=== PATIENT | male | born 1940 | race Two or more races ===

== ENCOUNTER 2018-10-09 00:45 | Emergency (ER) | payer OTHER ==
[~2018-10-09] VITALS: Ht 170.2 cm; Wt 88.5 kg
[2018-10-09 00:45] VITALS: BP_SYST 157
--- NOTE | 2018-10-09 01:34 | NUR ---
ER at bedside examining patient.
--- NOTE | 2018-10-09 01:34 | NUR ---
Patient to ER bed 8 to gown for evaluation. Side rails up. Report given to ALAN KIRBY.
--- NOTE | 2018-10-09 01:37 | NUR ---
Pt C/O nose pain S/P mechanical fall. Pt was walking in a parking lot and missed the curb, -KO. Pt has an abrasion to the bridge of the nose, bleeding is controlled no deformities noted. Vital signs are stable, will continue to monitor.
--- NOTE | 2018-10-09 01:46 | NUR ---
Patient transported to radiology via wheelchair, accompanied by rad staff.
--- NOTE | 2018-10-09 02:05 | NUR ---
Pt has returned from CT in stable condition. Pt's daughter is at bedside.
--- NOTE | 2018-10-09 03:22 | NUR ---
Patient given written and verbal discharge instructions and verbalizes understanding. ER MD discussed with patient the results and treatment provided. Patient in stable condition. ID arm band removed. Rx of Naprosyn given. Patient educated on pain management and to follow up with PMD. Pain Scale 0/10. Opportunity for questions provided and answered. Medication side effect fact sheet provided.
[2018-10-09 03:23] VITALS: BP_SYST 157
== END 2018-10-09 03:23 | disposition home or self-care (01) ==
LOC: SED 00:45
DX: S00.33XA Contusion of nose, initial encounter (principal); E11.9 Type 2 diabetes mellitus without complications; R03.0 Elevated blood-pressure reading, without diagnosis of hypertension; W01.0XXA Fall on same level from slipping, tripping and stumbling without subsequent striking against object, initial encounter; Y93.89 Activity, other specified; Y92.89 Other specified places as the place of occurrence of the external cause; Y99.8 Other external cause status
CPT/HCPCS: 70450-TC; 70486-TC; 99284

== ENCOUNTER 2022-03-03 09:31 | Inpatient (IN) | payer OTHER ==
[~2022-03-03] VITALS: Ht 167.6 cm; Wt 72.1 kg
[~2022-03-03 09:31] MED LIST: ALBMDI INH; AUG875 PO; CYAN100T44 PO; GLIP10TA11 PO; IBUP-1969 PO; LISI10TA29 PO; NIRM1TAB PO
[2022-03-03 09:39] VITALS: BP_SYST 127
--- NOTE | 2022-03-03 09:40 | NUR ---
Patient to ER bed 04 to gown for evaluation. Side rails up.
--- NOTE | 2022-03-03 09:45 | NUR ---
Patient A/Ox4, VSS, resp even and unlabored. Patient presents to ED with c/o diarrhea and vomiting x1 day. NAD noted at this time. Will continue to monitor.
--- NOTE | 2022-03-03 09:53 | NUR ---
ERMD AT BEDSIDE AT THIS TIME
[2022-03-03] MEDS ORDERED: NACL 0.9% 1,000 ML IV ONE ×2 (10:00→10:30)
[2022-03-03] MEDS ORDERED: ONDANSETRON HCL 4 MG/2 ML VIAL IVP ONE ×2 (10:00)
[2022-03-03] MEDS ORDERED: ACETAMINOPHEN 325 MG TABLET PO ONE (10:15)
[2022-03-03 10:24] LABS: BASOPHILS # (AUTO) 0.1 K/uL (0.0-0.2); BASOPHILS % (AUTO) 0.5 % (0.0-2.0); HEMATOCRIT 39.6 % (36-54); HEMOGLOBIN 13.5 g/dL (14.0-18.0); LYMPHOCYTES # (AUTO) 1.2 K/uL (1.0-5.5); LYMPHOCYTES % (AUTO) 5.8 % (20.5-51.5); MEAN CORPUSCULAR HEMOGLOBIN 31 pg (27-31); MEAN CORPUSCULAR HGB CONC 34 % (32-36); MEAN CORPUSCULAR VOLUME 90 fL (79.0-98.0); MONOCYTES # (AUTO) 1.3 K/uL (0.0-1.0); MONOCYTES % (AUTO) 6.7 % (1.7-9.3); NEUTROPHILS # (AUTO) 17.3 K/uL (1.8-7.7); PLATELET COUNT (AUTO) 281 K/uL (130-430); RED BLOOD CELL COUNT(AUTO) 4.39 MIL/uL (4.2-6.2); RED CELL DISTRIBUTION WIDTH 13.6 % (9.0-15.0); WHITE BLOOD COUNT (AUTO) 19.9 K/uL (4.8-10.8)
[2022-03-03 10:32] LABS: ANION GAP 11 (5-15); CALCIUM 9.1 mg/dL (8.4-11.0); CHLORIDE 100 mmol/L (98-107); CREATININE 1.24 mg/dL (0.55-1.30); GLUCOSE 216 mg/dL (70-99); POTASSIUM 4.4 mmol/L (3.5-5.1); SODIUM SERUM 135 mmol/L (136-145); UREA NITROGEN, BLOOD 27 mg/dL (8-21)
[2022-03-03 10:37] LABS: ALANINE AMINOTRANSFERASE 21 U/L (12-78); ALBUMIN 3.3 g/dL (3.4-4.8); ASPARTATE AMINOTRANSFERASE 21 U/L (10-37); LIPASE 125 U/L (73-393); TOTAL BILIRUBIN 0.9 mg/dL (0.0-1.0)
--- NOTE | 2022-03-03 12:00 | NUR ---
pt ambulated to restroom with walker at this time
[2022-03-03] MEDS ORDERED: CEFEPIME 2 GM in D5W 100 ML IV ONE (12:30)
[2022-03-03] MEDS ORDERED: metroNIDAZOLE 500 mg/NS 100 ML IV ONE (12:30)
--- NOTE | 2022-03-03 14:34 | NUR ---
family at bedside at this time
--- NOTE | 2022-03-03 15:44 | NUR ---
COVID SWAB OBTAINED AND SENT TO LAB
[2022-03-03] MEDS: D5/0.45 NS 1,000 ML IV SCH ×2 (15:45→23:58)
[2022-03-03 16:27] LABS: BILIRUBIN,URINE NEGATIVE (NEGATIVE); BLOOD, URINE NEGATIVE (NEGATIVE); CLARITY/URINE CLEAR (CLEAR); COLOR,URINE YELLOW (YELLOW); GLUCOSE,URINE 3+ (NEGATIVE); KETONES,URINE 1+ (NEGATIVE); LEUKOCYTE ESTERASE ,URINE NEGATIVE (NEGATIVE); NITRITE, URINE NEGATIVE (NEGATIVE); PROTEIN URINE NEGATIVE (NEGATIVE); UROBILINOGEN,URINE 0.2 (0.2-1.0)
--- NOTE | 2022-03-03 17:00 | NUR ---
Patient resting comfortably with side rails raised. Nad noted at this time. Will continue to monitor.
--- NOTE | 2022-03-03 18:16 | NUR ---
Patient given dinner tray at bedside. Patient's son at bedside. Nad noted at this time.
[2022-03-03 18:43] LABS: BACTERIA,URINE RARE /HPF (None Seen); MUCUS,URINE None Seen /LPF (None Seen); RBC,URINE NONE SEEN /HPF (0-3); WBC,URINE 0-3 /HPF (0-3)
--- NOTE | 2022-03-03 19:15 | NUR ---
Yamilka pearson in [facility] - 03/03/22 at 1916 by [id number] pt refused labs. MD archer
[2022-03-03 20:20] VITALS: BP_SYST 93
--- NOTE | 2022-03-03 21:05 | NUR ---
CONSULTATION PAGED/CALLED Reason for Consultation: COLITIS Person Who was Notified: ASHLEY Consulting Physician: DR. ORTEGA Dry House Worker Specialty: GI Ordering Physician: MICHAEL ANDRE
--- NOTE | 2022-03-03 21:05 | NUR ---
CONSULTATION PAGED/CALLED Reason for Consultation: COLITIS Person Who was Notified: ASHLEY Consulting Physician: Neeta DHALIWAL Welding Process Specialist Specialty: ID Ordering Physician:
[2022-03-03] MEDS ORDERED: ACETAMINOPHEN 325 MG TABLET PO PRN (21:30)
[2022-03-03] MEDS ORDERED: ONDANSETRON HCL 4 MG/2 ML VIAL IVP PRN (21:30)
[2022-03-03] MEDS ORDERED: NALOXONE HCL 0.4 MG/ML AMP (NARCAN) IVP PRN ×2 (21:30)
[2022-03-03] MEDS ORDERED: ALBUTEROL MDI INHALATION 8 GM INH INH PRN (21:30)
[2022-03-03] MEDS ORDERED: HYDROcodone/ACETAMIN 5-325 MG TAB (NORCO/ VICODIN) PO PRN (21:30)
[2022-03-03] MEDS ORDERED: INSULIN REGULAR, HUMAN 100 UNITS/ML, 10 ML VIAL (humuLIN R) SUBCUT PRN (21:30)
[2022-03-03] MEDS ORDERED: IBUPROFEN 600 MG TABLET PO PRN (21:30)
[2022-03-03] MEDS ORDERED: HYDROcodone/ACETAMIN 10-325 MG TAB PO PRN (21:30)
[2022-03-03] MEDS ORDERED: LORazepam 2 MG/ML VIAL IVP PRN (21:30)
[2022-03-03] MEDS ORDERED: metroNIDAZOLE 500 mg/NS 200 ML IV ONE (23:40)
[2022-03-03] MEDS: metroNIDAZOLE 500 mg/NS 100 ML IV SCH (23:58)
[2022-03-04] VITALS: BP_SYST 118
[2022-03-04] MEDS: metroNIDAZOLE 500 mg/NS 100 ML IV SCH (05:36)
[2022-03-04 06:27] LABS: BASOPHILS # (AUTO) 0.1 K/uL (0.0-0.2); BASOPHILS % (AUTO) 0.6 % (0.0-2.0); EOSINOPHILS % (AUTO) 0.2 % (0.0-4.0); HEMATOCRIT 34.4 % (36-54); HEMOGLOBIN 11.8 g/dL (14.0-18.0); LYMPHOCYTES # (AUTO) 1.4 K/uL (1.0-5.5); LYMPHOCYTES % (AUTO) 9.9 % (20.5-51.5); MEAN CORPUSCULAR HEMOGLOBIN 31 pg (27-31); MEAN CORPUSCULAR HGB CONC 34 % (32-36); MEAN CORPUSCULAR VOLUME 90 fL (79.0-98.0); MONOCYTES # (AUTO) 1.2 K/uL (0.0-1.0); MONOCYTES % (AUTO) 8.4 % (1.7-9.3); NEUTROPHILS # (AUTO) 11.1 K/uL (1.8-7.7); NEUTROPHILS % (AUTO) 80.9 % (40.0-70.0); PLATELET COUNT (AUTO) 237 K/uL (130-430); RED BLOOD CELL COUNT(AUTO) 3.81 MIL/uL (4.2-6.2); RED CELL DISTRIBUTION WIDTH 13.6 % (9.0-15.0); WHITE BLOOD COUNT (AUTO) 13.7 K/uL (4.8-10.8)
[2022-03-04] MEDS ORDERED: ACETAMINOPHEN 325 MG TABLET PO PRN (07:15)
[2022-03-04] MEDS ORDERED: ALBUTEROL SULFATE 0.083% 2.5 MG/3 ML VIAL.NEB INH PRN (07:45)
[2022-03-04 07:54] LABS: ERYTHROCYTE SEDIMENTATION RATE 37 MM/HR (0-15)
[2022-03-04 08:00] VITALS: BP_SYST 121
[2022-03-04 08:41] LABS: ALANINE AMINOTRANSFERASE 13 U/L (12-78); ALBUMIN 2.5 g/dL (3.4-4.8); ANION GAP 7 (5-15); ASPARTATE AMINOTRANSFERASE 21 U/L (10-37); C-REACTIVE PROTEIN QUANT 15.7 mg/dL (0-0.5); CALCIUM 7.8 mg/dL (8.4-11.0); CHLORIDE 103 mmol/L (98-107); CREATININE 0.81 mg/dL (0.55-1.30); GLUCOSE 190 mg/dL (70-99); PHOSPHORUS 2.4 mg/dL (2.7-4.5); POTASSIUM 3.5 mmol/L (3.5-5.1); SODIUM SERUM 132 mmol/L (136-145); TOTAL BILIRUBIN 0.6 mg/dL (0.0-1.0); UREA NITROGEN, BLOOD 20 mg/dL (8-21)
[2022-03-04] MEDS ORDERED: CIPROFLOXACIN LACT 200 MG/D5W 100 ML IV SCH (09:00)
[2022-03-04] MEDS ORDERED: NIRMATRELVIR PO SCH (09:00)
[2022-03-04] MEDS ORDERED: LISINOPRIL 10 MG TABLET (PRINIVIL) PO SCH (09:00)
[2022-03-04] MEDS ORDERED: LACTOBACILLUS RHAMNOSUS GG 1 CAP CAPSULE PO SCH (09:00)
[2022-03-04] MEDS ORDERED: NON-FORMULARY MEDICATION (Cyanocobalamin (Vitamin B-12) 100 MCG) PO SCH (09:00)
[2022-03-04] MEDS ORDERED: RITONAVIR PO SCH (09:00)
[2022-03-04] MEDS ORDERED: AMOXICILLIN/CLAVULANATE POTASSIUM 875 MG TABLET PO SCH (09:00)
[2022-03-04] MEDS ORDERED: [UNRECOGNIZED DRUG - CODE] PO (09:10)
[2022-03-04] MEDS ORDERED: CIPR250T4 PO (09:10)
[2022-03-04] MEDS ORDERED: METR-343 PO (09:10)
[2022-03-04] MEDS ORDERED: NAPH,MB-DB/K PH,MBDB 250 MG TAB PO ONE (09:15)
--- NOTE | 2022-03-04 09:15 | NUR ---
seen and examined by with orders.patient told him he wants to go home today MD said not yet but patient is insisting that he wants to go. MD said patient can sign AMA if he really wanted to go and he is not clearing him for discharge.
[2022-03-04 11:25] VITALS: BP_SYST 126
--- NOTE | 2022-03-04 11:29 | NUR ---
spoke to patient"s daughter caryn tel.# [phone] tlld her that her father wants to go AMA she said if that what he wants she will bulk picker father around 1200 today. Patient signed the AMA form and explain the risk of going against medical advise patient understands and still wants to go AMA.
== END 2022-03-04 12:20 | disposition home or self-care (01) | DRG 872 ==
LOC: SED 09:31 → MERGE 15:32 → SMU 15:32
PROVIDERS: ADMIT Preventive Medicine Preventive Medicine/Occupational Environmental Medicine; ATTEND Preventive Medicine Preventive Medicine/Occupational Environmental Medicine
DX: A41.9 Sepsis, unspecified organism (principal); K57.92 Diverticulitis of intestine, part unspecified, without perforation or abscess without bleeding; A04.72 Enterocolitis due to Clostridium difficile, not specified as recurrent; E44.0 Moderate protein-calorie malnutrition; R64 Cachexia; E11.9 Type 2 diabetes mellitus without complications; E78.5 Hyperlipidemia, unspecified; I10 Essential (primary) hypertension; I25.10 Atherosclerotic heart disease of native coronary artery without angina pectoris; E11.65 Type 2 diabetes mellitus with hyperglycemia; Z79.899 Other long term (current) drug therapy; Z90.49 Acquired absence of other specified parts of digestive tract
CPT/HCPCS: 36415; 76376; 80053; 81000; 82272; 82962; 83690; 83735; 84100; 85025; 85651-TC; 86140; 87045-TC; 87046; 87177; 87230-TC; 89055; 96361; 96365; 96375; 99285; J0692; J0744; J3490; J7030; J7060

== ENCOUNTER 2023-08-12 10:42 | Emergency (ER) | payer OTHER ==
[~2023-08-12] VITALS: Ht 167.6 cm; Wt 68.0 kg
[~2023-08-12 10:42] MED LIST changes: -AUG875 PO; +CIPR250T4 PO; +METR-343 PO; -NIRM1TAB PO; +[UNRECOGNIZED DRUG - CODE] PO
[2023-08-12 10:49] VITALS: BP_SYST 157; PULSE 107; RESP 18; TEMP 97.8; O2SAT 97
[2023-08-12] MEDS: NS 1000 ML IV.SOLN IV ONE (11:26)
[2023-08-12 11:35] LABS: BASOPHILS # (AUTO) 0.1 K/uL (0.0-0.2); BASOPHILS % (AUTO) 0.8 % (0.0-2.0); EOSINOPHILS # (AUTO) 0.2 K/uL (0.0-0.4); EOSINOPHILS % (AUTO) 2.2 % (0.0-4.0); HEMATOCRIT 35.6 % (36-54); HEMOGLOBIN 12.2 g/dL (14.0-18.0); LYMPHOCYTES # (AUTO) 0.7 K/uL (1.0-5.5); LYMPHOCYTES % (AUTO) 8.8 % (20.5-51.5); MEAN CORPUSCULAR HEMOGLOBIN 31 pg (27-31); MEAN CORPUSCULAR HGB CONC 34 % (32-36); MEAN CORPUSCULAR VOLUME 91 fL (79.0-98.0); MONOCYTES # (AUTO) 0.9 K/uL (0.0-1.0); MONOCYTES % (AUTO) 11.8 % (1.7-9.3); NEUTROPHILS # (AUTO) 5.7 K/uL (1.8-7.7); NEUTROPHILS % (AUTO) 76.4 % (40.0-70.0); PLATELET COUNT (AUTO) 341 K/uL (130-430); RED CELL DISTRIBUTION WIDTH 14.4 % (9.0-15.0); WHITE BLOOD COUNT (AUTO) 7.5 K/uL (4.8-10.8)
[2023-08-12 11:48] LABS: ANION GAP 7 (5-15); CALCIUM 9.3 mg/dL (8.4-11.0); CARBON DIOXIDE 26 mmol/L (23-29); CHLORIDE 102 mmol/L (98-107); CREATININE 1.13 mg/dL (0.55-1.30); GLUCOSE 132 mg/dL (74-106); POTASSIUM 4.3 mmol/L (3.5-5.1); SODIUM SERUM 135 mmol/L (136-145); UREA NITROGEN, BLOOD 41 mg/dL (8-21)
[2023-08-12 11:59] LABS: ALANINE AMINOTRANSFERASE 26 U/L (12-78); ALBUMIN 3.3 g/dL (3.4-4.8); ASPARTATE AMINOTRANSFERASE 29 U/L (10-37); BILIRUBIN,DIRECT 0.2 mg/dL (0.0-0.3); TOTAL BILIRUBIN 0.4 mg/dL (0.0-1.0); TOTAL PROTEIN, SERUM 7.2 g/dL (6.4-8.3)
[2023-08-12 14:11] LABS: BILIRUBIN,URINE NEGATIVE (NEGATIVE); BLOOD, URINE NEGATIVE (NEGATIVE); CLARITY/URINE CLEAR (CLEAR); COLOR,URINE YELLOW (YELLOW); GLUCOSE,URINE TRACE (NEGATIVE); KETONES,URINE TRACE (NEGATIVE); LEUKOCYTE ESTERASE ,URINE NEGATIVE (NEGATIVE); NITRITE, URINE NEGATIVE (NEGATIVE); PROTEIN URINE NEGATIVE (NEGATIVE)
[2023-08-12] MEDS ORDERED: PHEDM120 PO (14:51)
[2023-08-12 14:56] VITALS: BP_SYST 145; PULSE 98; RESP 17; TEMP 99; O2SAT 98
== END 2023-08-12 14:56 | disposition home or self-care (01) ==
LOC: SED 10:42
DX: R53.1 Weakness (principal); E86.0 Dehydration; R07.89 Other chest pain; E11.9 Type 2 diabetes mellitus without complications; I10 Essential (primary) hypertension; Z79.899 Other long term (current) drug therapy
CPT/HCPCS: 99285; 96360; 71045; 96361; 80076; 80048; 81001; 85025; 87040; 87086; 84484; 36415; 93005; 71100; 83605; 81003; J7030

== ENCOUNTER 2024-01-02 13:13 | Emergency (ER) | payer OTHER ==
[~2024-01-02] VITALS: Ht 167.6 cm; Wt 62.6 kg
[~2024-01-02 13:13] MED LIST changes: +PHEDM120 PO
[2024-01-02 13:15] VITALS: BP_SYST 148; PULSE 70; RESP 18; TEMP 97.1; O2SAT 98
[2024-01-02 15:05] LABS: BASOPHILS # (AUTO) 0.1 K/uL (0.0-0.2); BASOPHILS % (AUTO) 0.6 % (0.0-2.0); EOSINOPHILS # (AUTO) 0.7 K/uL (0.0-0.4); EOSINOPHILS % (AUTO) 5.1 % (0.0-4.0); HEMATOCRIT 32.5 % (36-54); MEAN CORPUSCULAR HEMOGLOBIN 32 pg (27-31); MEAN CORPUSCULAR HGB CONC 34 % (32-36); MEAN CORPUSCULAR VOLUME 94 fL (79.0-98.0); MONOCYTES # (AUTO) 1.2 K/uL (0.0-1.0); MONOCYTES % (AUTO) 8.8 % (1.7-9.3); NEUTROPHILS # (AUTO) 9.3 K/uL (1.8-7.7); NEUTROPHILS % (AUTO) 70.5 % (40.0-70.0); PLATELET COUNT (AUTO) 557 K/uL (130-430); RED BLOOD CELL COUNT(AUTO) 3.48 MIL/uL (4.2-6.2); RED CELL DISTRIBUTION WIDTH 14.5 % (9.0-15.0); WHITE BLOOD COUNT (AUTO) 13.3 K/uL (4.8-10.8)
[2024-01-02 15:26] LABS: ALANINE AMINOTRANSFERASE 16 U/L (12-78); ALBUMIN 2.6 g/dL (3.4-4.8); ANION GAP 9 (5-15); ASPARTATE AMINOTRANSFERASE 19 U/L (10-37); BILIRUBIN,DIRECT 0.1 mg/dL (0.0-0.3); CALCIUM 9.3 mg/dL (8.4-11.0); CARBON DIOXIDE 27 mmol/L (23-29); CHLORIDE 107 mmol/L (98-107); CREATINE KINASE, TOTAL 42 U/L (39-308); CREATININE 1.01 mg/dL (0.55-1.30); GLUCOSE 117 mg/dL (74-106); POTASSIUM 4.8 mmol/L (3.5-5.1); SODIUM SERUM 143 mmol/L (136-145); TOTAL BILIRUBIN 0.2 mg/dL (0.0-1.0); TOTAL PROTEIN, SERUM 7.1 g/dL (6.4-8.3); UREA NITROGEN, BLOOD 31 mg/dL (8-21)
[2024-01-02 16:24] VITALS: BP_SYST 148; PULSE 70; RESP 18; TEMP 97.1; O2SAT 98
[2024-01-02 16:27] LABS: INR 1.1 (0.80-1.20); PROTHROMBIN TIME 11.3 SECS (9.5-12.5)
== END 2024-01-02 16:23 | disposition home or self-care (01) ==
LOC: SED 13:13
DX: R20.2 Paresthesia of skin (principal); R29.810 Facial weakness; E11.9 Type 2 diabetes mellitus without complications; I10 Essential (primary) hypertension
CPT/HCPCS: 36415; 70450-TC; 71045; 80048; 80076; 82550; 84484; 85025; 85610; 85730; 93005; 99285

== ENCOUNTER 2024-04-06 08:34 | Emergency (ER) | payer OTHER ==
[~2024-04-06] VITALS: Ht 167.6 cm; Wt 59.0 kg
[2024-04-06 09:11] VITALS: BP_SYST 108; PULSE 100; RESP 16; TEMP 97.2; O2SAT 100
[2024-04-06 09:37] LABS: BASOPHILS % (AUTO) 0.3 % (0.0-2.0); EOSINOPHILS # (AUTO) 0.3 K/uL (0.0-0.4); EOSINOPHILS % (AUTO) 2.4 % (0.0-4.0); HEMOGLOBIN 11.5 g/dL (14.0-18.0); LYMPHOCYTES # (AUTO) 0.5 K/uL (1.0-5.5); LYMPHOCYTES % (AUTO) 3.9 % (20.5-51.5); MEAN CORPUSCULAR HEMOGLOBIN 32 pg (27-31); MEAN CORPUSCULAR HGB CONC 33 % (32-36); MEAN CORPUSCULAR VOLUME 96 fL (79.0-98.0); MONOCYTES # (AUTO) 0.7 K/uL (0.0-1.0); MONOCYTES % (AUTO) 5.6 % (1.7-9.3); NEUTROPHILS # (AUTO) 11.3 K/uL (1.8-7.7); NEUTROPHILS % (AUTO) 87.8 % (40.0-70.0); PLATELET COUNT (AUTO) 373 K/uL (130-430); RED BLOOD CELL COUNT(AUTO) 3.65 MIL/uL (4.2-6.2); RED CELL DISTRIBUTION WIDTH 15.1 % (9.0-15.0); WHITE BLOOD COUNT (AUTO) 12.9 K/uL (4.8-10.8)
[2024-04-06] MEDS: ONDANSETRON HCL 4 MG/2 ML VIAL IVP ONE (09:41)
[2024-04-06 10:00] LABS: INR 1.1 (0.80-1.20)
[2024-04-06 10:23] LABS: ALANINE AMINOTRANSFERASE 21 U/L (12-78); AMYLASE 39 U/L (0-100); ANION GAP 10 (5-15); ASPARTATE AMINOTRANSFERASE 30 U/L (10-37); BILIRUBIN,DIRECT 0.2 mg/dL (0.0-0.3); CALCIUM 8.8 mg/dL (8.4-11.0); CARBON DIOXIDE 22 mmol/L (23-29); CHLORIDE 109 mmol/L (98-107); CREATININE 1.03 mg/dL (0.55-1.30); GLUCOSE 110 mg/dL (74-106); LIPASE 27 U/L (16-77); POTASSIUM 4.5 mmol/L (3.5-5.1); SODIUM SERUM 141 mmol/L (136-145); TOTAL BILIRUBIN 0.5 mg/dL (0.0-1.0); TOTAL PROTEIN, SERUM 6.7 g/dL (6.4-8.3); UREA NITROGEN, BLOOD 52 mg/dL (8-21)
[2024-04-06 10:45] LABS: ACETONE, SERUM NEGATIVE (NEGATIVE)
[2024-04-06 10:58] LABS: BILIRUBIN,URINE NEGATIVE (NEGATIVE); BLOOD, URINE NEGATIVE (NEGATIVE); CLARITY/URINE CLEAR (CLEAR); COLOR,URINE YELLOW (YELLOW); GLUCOSE,URINE NEGATIVE (NEGATIVE); KETONES,URINE TRACE (NEGATIVE); LEUKOCYTE ESTERASE ,URINE NEGATIVE (NEGATIVE); NITRITE, URINE NEGATIVE (NEGATIVE); PROTEIN URINE NEGATIVE (NEGATIVE); UROBILINOGEN,URINE 0.2 (0.2-1.0)
[2024-04-06] MEDS: NACL 0.9% 1,000 ML IV ONE (11:45)
[2024-04-06] MEDS ORDERED: ONDA-8 TL (13:02)
[2024-04-06 13:09] VITALS: BP_SYST 108; PULSE 100; RESP 16; TEMP 97.2; O2SAT 100
== END 2024-04-06 13:08 | disposition home or self-care (01) ==
LOC: SED 08:34
DX: E86.0 Dehydration (principal); R53.1 Weakness; R11.10 Vomiting, unspecified; E11.9 Type 2 diabetes mellitus without complications; I10 Essential (primary) hypertension; Z79.899 Other long term (current) drug therapy; Z79.2 Long term (current) use of antibiotics
CPT/HCPCS: 99285; 96374; 71045; 96361; 80076; 80048; 81001; 82009; 82150; 83690; 85025; 85610; 85730; 84484; 36415; 93005; 83605; 82397; 81003; J2405; J7030

== ENCOUNTER 2024-05-22 09:23 | Inpatient (IN) | payer OTHER ==
[~2024-05-22] VITALS: Ht 167.6 cm; Wt 65.8 kg
[2024-05-22 09:23] VITALS: BP_SYST 117; PULSE 65; RESP 18; TEMP 97.7; O2SAT 97
[~2024-05-22 09:23] MED LIST changes: +ONDA-8 TL
[2024-05-22] MEDS: ONDANSETRON HCL 4 MG/2 ML VIAL IVP ONE (09:45)
[2024-05-22] MEDS: MORPHINE 4 MG INJ. 4 MG/ML VIAL IVP ONE (09:45)
[2024-05-22] MEDS: NITROGLYCERIN 0.4 MG TAB.SUBL SL ONE (09:45)
[2024-05-22] MEDS: ASPIRIN 81 MG TAB.CHEW PO ONE (09:58)
[2024-05-22] MEDS ORDERED: ASPIRIN 81 MG TABLET(ECOTRIN) ONE (10:03)
[2024-05-22] MEDS ORDERED: ASPIRIN 81 MG TAB.CHEW ONE (10:06)
[2024-05-22] MEDS: NACL 0.9% 250 ML IV ONE (10:49)
[2024-05-22 10:55] LABS: BASOPHILS # (AUTO) 0.1 K/uL (0.0-0.2); BASOPHILS % (AUTO) 1.3 % (0.0-2.0); EOSINOPHILS # (AUTO) 0.8 K/uL (0.0-0.4); EOSINOPHILS % (AUTO) 10.9 % (0.0-4.0); HEMATOCRIT 33.5 % (36-54); HEMOGLOBIN 11.3 g/dL (14.0-18.0); LYMPHOCYTES # (AUTO) 1.9 K/uL (1.0-5.5); LYMPHOCYTES % (AUTO) 26.6 % (20.5-51.5); MEAN CORPUSCULAR HEMOGLOBIN 32 pg (27-31); MEAN CORPUSCULAR HGB CONC 34 % (32-36); MEAN CORPUSCULAR VOLUME 95 fL (79.0-98.0); MONOCYTES # (AUTO) 0.9 K/uL (0.0-1.0); MONOCYTES % (AUTO) 11.7 % (1.7-9.3); NEUTROPHILS # (AUTO) 3.6 K/uL (1.8-7.7); NEUTROPHILS % (AUTO) 49.5 % (40.0-70.0); PLATELET COUNT (AUTO) 308 K/uL (130-430); RED BLOOD CELL COUNT(AUTO) 3.54 MIL/uL (4.2-6.2); RED CELL DISTRIBUTION WIDTH 14.3 % (9.0-15.0); WHITE BLOOD COUNT (AUTO) 7.3 K/uL (4.8-10.8)
[2024-05-22 11:29] LABS: ANION GAP 10 (5-15); CALCIUM 9.3 mg/dL (8.4-11.0); CARBON DIOXIDE 23 mmol/L (23-29); CHLORIDE 107 mmol/L (98-107); CREATININE 1.02 mg/dL (0.55-1.30); GLUCOSE 88 mg/dL (74-106); SODIUM SERUM 140 mmol/L (136-145); UREA NITROGEN, BLOOD 42 mg/dL (8-21)
[2024-05-22] MEDS ORDERED: FENO160 PO (12:34)
[2024-05-22] MEDS ORDERED: FERR-69 PO (12:34)
[2024-05-22] MEDS ORDERED: METF-381 PO (12:34)
[2024-05-22] MEDS ORDERED: CLOP75TA32 PO (12:34)
[2024-05-22] MEDS ORDERED: LISI40TA13 PO (12:34)
[2024-05-22] MEDS ORDERED: SITA100T11 PO (12:34)
[2024-05-22] MEDS ORDERED: GABA-531 PO (12:35)
[2024-05-22] MEDS ORDERED: CYCL10TA24 PO (12:35)
[2024-05-22] MEDS ORDERED: INSULIN ASPART 100 UNITS/ML, 10 ML VIAL (NovoLOG) SUBCUT PRN (12:45)
[2024-05-22 13:20] LABS: CHOLESTEROL 139 mg/dL (<200); HDL CHOLESTEROL 37 mg/dL (>45); TRIGLYCERIDES 102 mg/dL (30-150)
[2024-05-22] MEDS ORDERED: DIATR MEGLU/DIATRIZ SOD 30 ML SOLUTION PO ONE (13:23)
[2024-05-22] MEDS: SUCRALFATE 1 GM/10 ML UDC GT ONE (13:55)
[2024-05-22 14:30] VITALS: BP_SYST 142; PULSE 61; RESP 16; TEMP 97.6; O2SAT 100
[2024-05-22] MEDS ORDERED: INSULIN LISPRO SLIDING SCALE 100 UNITS/ML, 3 ML VIAL (humaLOG) SUBCUT PRN (14:30)
[2024-05-22] MEDS: PANTOPRAZOLE SODIUM 40 MG/VIAL (PROTONIX) IVP ONE (15:42)
[2024-05-22 17:05] VITALS: BP_SYST 148; PULSE 59; RESP 16; TEMP 97.6; O2SAT 100
[2024-05-22 17:40] LABS: BILIRUBIN,URINE NEGATIVE (NEGATIVE); BLOOD, URINE NEGATIVE (NEGATIVE); CLARITY/URINE CLEAR (CLEAR); COLOR,URINE YELLOW (YELLOW); GLUCOSE,URINE NEGATIVE (NEGATIVE); KETONES,URINE NEGATIVE (NEGATIVE); LEUKOCYTE ESTERASE ,URINE NEGATIVE (NEGATIVE); NITRITE, URINE NEGATIVE (NEGATIVE); PROTEIN URINE NEGATIVE (NEGATIVE)
[2024-05-22] MEDS: SUCRALFATE 1 GM/10 ML UDC GT SCH (17:45)
[2024-05-22 20:00] VITALS: BP_SYST 118; PULSE 71; RESP 20; O2SAT 98
[2024-05-22 20:30] VITALS: O2SAT 98
[2024-05-22] MEDS: CYCLOBENZAPRINE HCL 10 MG TABLET (FLEXERIL) PO SCH (21:02)
[2024-05-22] MEDS: PANTOPRAZOLE SODIUM 40 MG/VIAL (PROTONIX) IVP SCH (21:03)
[2024-05-22] MEDS: GABAPENTIN 300 MG CAPSULE PO SCH (21:03)
[2024-05-23 00:15] VITALS: BP_SYST 98; PULSE 71; RESP 18; TEMP 97.8; O2SAT 100
[2024-05-23 07:39] LABS: BASOPHILS # (AUTO) 0.1 K/uL (0.0-0.2); BASOPHILS % (AUTO) 1.1 % (0.0-2.0); EOSINOPHILS # (AUTO) 0.6 K/uL (0.0-0.4); EOSINOPHILS % (AUTO) 9.4 % (0.0-4.0); HEMATOCRIT 31.6 % (36-54); HEMOGLOBIN 10.5 g/dL (14.0-18.0); LYMPHOCYTES # (AUTO) 1.4 K/uL (1.0-5.5); LYMPHOCYTES % (AUTO) 21.3 % (20.5-51.5); MEAN CORPUSCULAR HEMOGLOBIN 32 pg (27-31); MEAN CORPUSCULAR HGB CONC 33 % (32-36); MEAN CORPUSCULAR VOLUME 95 fL (79.0-98.0); MONOCYTES # (AUTO) 0.6 K/uL (0.0-1.0); NEUTROPHILS % (AUTO) 59.2 % (40.0-70.0); PLATELET COUNT (AUTO) 306 K/uL (130-430); RED BLOOD CELL COUNT(AUTO) 3.32 MIL/uL (4.2-6.2); RED CELL DISTRIBUTION WIDTH 14.5 % (9.0-15.0); WHITE BLOOD COUNT (AUTO) 6.8 K/uL (4.8-10.8)
[2024-05-23 08:00] VITALS: BP_SYST 88; PULSE 78; RESP 16; TEMP 97; O2SAT 100
[2024-05-23] MEDS: LISINOPRIL 10 MG TABLET (PRINIVIL) PO SCH (12:35)
[2024-05-23] MEDS: metFORMIN HCL 500 MG TABLET PO SCH (12:36)
[2024-05-23] MEDS: FENOFIBRATE 160 MG TABLET PO SCH (12:36)
[2024-05-23 13:15] VITALS: BP_SYST 96; PULSE 75; RESP 18; TEMP 98.1; O2SAT 98
[2024-05-23 21:30] VITALS: BP_SYST 88; PULSE 71; RESP 20; TEMP 99.2; O2SAT 95; O2SAT 98
[2024-05-23] MEDS: CYCLOBENZAPRINE HCL 10 MG TABLET (FLEXERIL) PO SCH (21:41)
[2024-05-23] MEDS: NACL 0.9% 1,000 ML IV SCH (22:21)
[2024-05-24] VITALS (7 sets, daily range): BP systolic 82–109; PULSE 60–77; RESP 16–20; TEMP 97–97.7; O2SAT 96–100
[2024-05-24] MEDS: CYANOCOBALAMIN (VITAMIN B-12) 1,000 MCG TABLET PO SCH (09:40)
[2024-05-24] MEDS ORDERED: METF-379 PO (12:56)
[2024-05-24] MEDS ORDERED: SUCR1TAB2 PO (12:57)
[2024-05-24] MEDS ORDERED: PRO40 PO (12:57)
== END 2024-05-24 16:05 | disposition home health service (06) | DRG 392 ==
LOC: SED 09:23 → STU 12:52
PROVIDERS: ADMIT Specialist; ATTEND Specialist
DX: K20.90 Esophagitis, unspecified without bleeding (principal); I10 Essential (primary) hypertension; I95.9 Hypotension, unspecified; E86.0 Dehydration; K31.9 Disease of stomach and duodenum, unspecified; E11.9 Type 2 diabetes mellitus without complications; I25.10 Atherosclerotic heart disease of native coronary artery without angina pectoris; I49.3 Ventricular premature depolarization; D64.9 Anemia, unspecified; R13.10 Dysphagia, unspecified; Z79.899 Other long term (current) drug therapy; Z88.8 Allergy status to other drugs, medicaments and biological substances; Z90.49 Acquired absence of other specified parts of digestive tract; Z86.73 Personal history of transient ischemic attack (TIA), and cerebral infarction without residual deficits
CPT/HCPCS: 36415; 71045; 71250-TC; 80048; 80061; 81001; 81003; 83880; 84484; 85025; 92610-GN; 93005; 99285; G0378; J2270; J2405; J2470; J7030; Q9964